=== PATIENT | male | born 1965 | race African-American/Black ===

== ENCOUNTER 2020-02-05 12:04 | Emergency (ER) | payer MEDICAID ==
[~2020-02-05] VITALS: Ht 170.2 cm; Wt 80.0 kg
[2020-02-05 12:10] VITALS: BP 147/91
[2020-02-05] MEDS ORDERED: SODIUM CHLORIDE 0.9% 1,000 ML IV ONE (12:45)
== END 2020-02-05 17:50 | disposition left against medical advice (07) ==
LOC: ER 12:12
DX: S00.83XA Contusion of other part of head, initial encounter (principal); I49.9 Cardiac arrhythmia, unspecified; V49.9XXA Car occupant (driver) (passenger) injured in unspecified traffic accident, initial encounter; Y93.89 Activity, other specified; Y92.89 Other specified places as the place of occurrence of the external cause; Y99.8 Other external cause status
CPT/HCPCS: 93005; 99283; J7030